=== PATIENT | female | born 1955 | race Caucasian/White ===

== ENCOUNTER 2016-12-20 08:13 | Day surgery (SDC) | payer OTHER ==
[2016-12-20] VITALS (10 sets, daily range): BP systolic 95–122; BP diastolic 61–80; PULSE 60–94; RESP 8–42; Ht 170.2 cm; Wt 75.1 kg
[~2016-12-20] VITALS: Ht 170.2 cm; Wt 75.1 kg
[~2016-12-20 08:13] MED LIST: [UNRECOGNIZED DRUG - CODE] IV
[2016-12-20] MEDS ORDERED: VANCOMYCIN 1 GM in NS 250 ML IVPB ONE (09:15)
[2016-12-20] MEDS ORDERED: SOD CHLORIDE 0.9% 1,000 ML IV ONE (09:15)
[2016-12-20 09:40] LABS: ADD SCAN DIFF NO
--- NOTE | 2016-12-20 09:46 | RADRPT ---
PROCEDURE: Chest Radiograph. CLINICAL INDICATION: Preop for port removal. TECHNIQUE: Single frontal chest radiograph. COMPARISON: Chest radiograph 12/18/2015 FINDINGS: A left chest wall port infusion catheter remains in place. The cardiomediastinal silhouette is with in normal limits. No infiltrate or effusion is seen. The bones are intact. IMPRESSION: 1. No evidence of acute cardiopulmonary disease. 2. Left chest wall port infusion catheter. RPTAT: AA .Iraj Deleon MD, Date Time Electronically viewed and signed by .Iraj Deleon MD, MD on 12/20/2016 09:45 .B/
[2016-12-20] MEDS ORDERED: MULTI PO (09:49)
[2016-12-20 09:51] LABS: BASOPHILS % 0.7 % (0.0-2.0); EOSINOPHILS # 0.1 10^3/ul (0.0-0.5); EOSINOPHILS % 1.8 % (0.0-7.0); HEMOGLOBIN 13.3 g/dl (12.0-16.0); LYMPHOCYTES # 1.9 10^3/ul (0.8-2.9); LYMPHOCYTES % 34.6 % (15.0-51.0); MEAN CORPUSCULAR HEMOGLOBIN 29.6 pg (29.0-33.0); MEAN CORPUSCULAR HGB CONC 34.1 g/dl (32.0-37.0); MEAN CORPUSCULAR VOLUME 86.9 fl (82.0-101.0); MEAN PLATELET VOLUME 10.4 fl (7.4-10.4); MONOCYTE # 0.4 10^3/ul (0.3-0.9); MONOCYTES % 7.1 % (0.0-11.0); NEUTROPHIL # 3.1 10^3/ul (1.6-7.5); NEUTROPHILS % 55.4 % (39.0-77.0); PLATELET COUNT 190 10^3/UL (140-415); RED BLOOD COUNT 4.49 10^6/ul (4.20-5.40); RED CELL DISTRIBUTION WIDTH 12.8 % (11.5-14.5); WHITE BLOOD COUNT 5.5 10^3/ul (4.8-10.8)
[2016-12-20 10:02] LABS: INR 0.91; PARTIAL THROMBOPLASTIN TIME 25.4 Sec (25.0-35.0); PROTIME 12.2 Sec (12.2-14.2)
[2016-12-20] MEDS ORDERED: ONDANSETRON 4 MG INJ ONE (10:10)
[2016-12-20] MEDS ORDERED: FENTAnyl 50 MCG/ML VIAL ONE (10:10)
[2016-12-20] MEDS ORDERED: MIDAZOLAM 1 MG/ML 2 ML INJ ONE (10:10)
[2016-12-20] MEDS ORDERED: SUCCINYLCHOLINE CHLORIDE 100 MG/5 ML SYG IV ONE (10:10)
[2016-12-20] MEDS ORDERED: LIDOCAINE 100 MG SYRINGE ONE (10:10)
[2016-12-20] MEDS ORDERED: PROPOFOL 20 ML ONE (10:10)
[2016-12-20] MEDS ORDERED: DEXAMETHASONE 4 MG/ML 1 ML INJ ONE (10:11)
[2016-12-20 10:15] LABS: CALCIUM 9.7 mg/dl (8.4-10.2); CREATININE 0.85 mg/dl (0.44-1.00); POTASSIUM 4.1 mmol/L (3.5-5.1)
--- NOTE | 2016-12-20 10:49 | OPR ---
DATE OF OPERATION: 12/20/2016 PREOPERATIVE DIAGNOSIS: History of a right breast cancer, need for chemo port removal. POSTOPERATIVE DIAGNOSIS: History of a right breast cancer, need for chemo port removal. OPERATION PERFORMED: Removal of chemo port from left subclavian position. ANESTHESIA: General. ANESTHESIOLOGIST: Fawad Dao MD SURGEON: Luiz Lerma MD COORDINATOR OF ONLINE PROGRAMS: Valerie Patrick MD INDICATIONS FOR PROCEDURE: Patient is a 61-year-old female previously treated for breast cancer req uested her port to be removed. She consented and was scheduled for surgery. DESCRIPTION OF PROCEDURE: The patient was brought to the operating theater, placed under general an esthesia. The left anterior thorax was prepped and draped in usual sterile fashion. Previous surgi jordon incisional scar directly over the palpable port was incised with 15 blade scalpel. Subcutaneous tissue was dissected with cautery down through the pseudocapsule, which had formed around the port. Port fixation sutures were transected with scissors and the port was elevated gently removed while pressure was held in the left infraclavicular region. The port appeared grossly intact. It was se nt to pathology for gross analysis to confirm that it was intact. The wound was irrigated. Minimal bleeding was controlled with cautery. The skin was then reapproximated with 5-0 PDS suture in subc uticular fashion, and benzoin and Steri-Strips were applied. Patient tolerated procedure well. The estimated blood loss was 10 mL. There were no complications and the patient was transported in sta ble condition to the recovery room. Dictated By: LUIZ LERMA MD TL/NTS Conf#: [id number] DID#: [id number] CC: VALERIE PATRICK MD;*EndCC*
[2016-12-20] MEDS ORDERED: LABETALOL HCL 20MG INJ IV PRN (11:00)
[2016-12-20] MEDS ORDERED: MIDAZOLAM 1 MG/ML 2 ML INJ IV PRN (11:00)
[2016-12-20] MEDS ORDERED: DIPHENHYDRAMINE 50 MG INJ IV PRN (11:00)
[2016-12-20] MEDS ORDERED: FENTAnyl 50 MCG/ML VIAL IV PRN ×3 (11:00)
[2016-12-20] MEDS ORDERED: EPHEDrine SULFATE 50 MG/5 ML SYG IV PRN (11:00)
[2016-12-20] MEDS ORDERED: ONDANSETRON 4 MG INJ IV PRN (11:00)
[2016-12-20] MEDS ORDERED: hydrALAzine 20 MG INJ IV PRN (11:00)
[2016-12-20] MEDS ORDERED: HYDROmorphONE (0.2 MG/ML) 10ML SYG IV PRN ×3 (11:00)
[2016-12-20] MEDS ORDERED: TRIMETHOBENZAMIDE 100 MG/ML VIAL IM PRN (11:00)
[2016-12-20] MEDS ORDERED: MEPERIDINE 25 MG INJ IV PRN (11:00)
--- NOTE | 2016-12-20 13:45 | RADRPT ---
Vent Rate: 71 bpm RR Interval: 0 msec [place] Interval: 158 msec QRS Duration: 104 msec QT Interval: 406 msec QTC Interval: 441 msec P-R-T [place]: 26 - 66 - 55 degrees Normal sinus rhythm Normal ECG Electronically Signed By: Timothy Belle [id number]
== END 2016-12-20 12:25 | disposition home or self-care (01) ==
LOC: SDS 08:13
PROVIDERS: ATTEND Surgery Surgical Oncology
DX: Z45.2 Encounter for adjustment and management of vascular access device (principal); Z85.3 Personal history of malignant neoplasm of breast
CPT/HCPCS: 36590; 71010; 80048; 85025; 85610; 85730; 93005; J1170; J2001; J2250; J2405; J3010; J0330; J1100